=== PATIENT | male | born 1990 | race Caucasian/White ===

== ENCOUNTER 2019-08-24 14:13 | Emergency (ER) | payer OTHER, SELFPAY ==
--- NOTE | ~2019-08-24 | XR_ITS ---
EXAMINATION: XR ribs LT 2V w CXR 2V DATE: 08/24/2019 14:49 INDICATION: Mid to lateral left chest pain with coughing TECHNIQUE: PA and lateral of the chest and 3 views of the left ribs were obtained. COMPARISON: None FINDINGS: No rib fractures identified. Bandlike discoid atelectasis at the right lung base. No other airspace o pacities, pulmonary edema, pleural effusion or pneumothorax. IMPRESSION: 1. No rib fracture. 2. Discoid atelectasis at the right lung base. No other acute cardiopulmonary disease. Reviewed, dictated and finalized at location A. IMPRESSION: 1. No rib fracture. 2. Discoid atelectasis at the right lung base. No other acute cardiopulmonary d isease.
[2019-08-24 14:21] VITALS: BP 150/93; PULSE 107; RESP 18; TEMP 36.6; O2SAT 96
[2019-08-24] MEDS: SODIUM CHLORIDE 0.9% IV 1,000 ML 999 ML IV CONT (15:06)
--- NOTE | 2019-08-24 15:08 | ED.GENADULT ---
HPI - General Adult General Chief complaint: Unspecified <Yvan Potter PA-C - Last Filed: 08/24/19 16:00> Stated complaint: LEFT RIB PAIN <Yvan Potter PA-C - Last Filed: 08/24/19 16:00> Time Seen by Provider: 08/24/19 14:16 <Yvan Potter PA-C - Last Filed: 08/24/19 16:00> Source: patient <TONYA Haynes Last Filed: 08/24/19 16:00> Mode of arrival: ambulatory <Yvan Potter PA-C - Last Filed: 08/24/19 16:00> Limitations: no limitations <Yvan Potter PA-C - Last Filed: 08/24/19 16:00> History of Present Illness HPI narrative: Patient is a 29-year-old male who presents to emergency department for evaluation of left rib pain noting sharp stabbing pain worse with activity and movement denying any dyspnea notes that the pain is been present for over 2 weeks patient notes that he was recently let go from the hospital after being diagnosed with pneumonia discharged 9 days ago patient on arrival to emergency department is in the room in no distress has been taking ibuprofen and Tylenol with minimal improvement denies any URI symptoms or other complaints and on arrival is in the room in no distress <Yvan Potter PA-C - Last Filed: 08/24/19 16:00> Related Data Home medications: Home Medications Medication Instructions Recorded Confirmed No Home Medications 08/24/19 08/24/19 <TONYA Haynes Last Filed: 08/24/19 16:00> Allergies/adverse reactions: Allergies Allergy/AdvReac Type Severity Reaction Status Date / Time morphine Allergy Mild SWELLING Verified 08/24/19 14:26 <Yvan Potter PA-C - Last Filed: 08/24/19 16:00> Review of Systems Review of Systems: All systems reviewed & are unremarkable except as noted in HPI and below <Yvan Potter PA-C - Last Filed: 08/24/19 16:00> [facility] Social History Social History: Social History Gender identity (if verbalized by the patient): Male <TONYA Haynes Last Filed: 08/24/19 16:00> Exam Narrative: Exam Narrative: GENERAL: Well-appearing, well-nourished, and in no acute distress. HEAD: Normocephalic, atraumatic. EYES: PERRLA and EOMI. ENT: Nares clear, no rhinorrhea or epistaxis. Mucous membranes moist. Oropharynx without tonsillar hypertrophy exudate or other lesions. NECK: Supple. No adenopathy or masses. CHEST: Clear to auscultation. No respiratory distress. No wheezes rales or rhonchi HEART: Regular rate and rhythm. No murmur heard. Normal peripheral pulses.. Tenderness of the left lateral ribs no deformity noted ABDOMEN: Soft, nontender, nondistended, EXTREMITIES: Normal range of motion. No edema. SKIN: Warm, dry, no rash. NEURO: No focal deficits. Alert and oriented x3. PSYCH: Normal mood and affect. <TONYA Haynes Last Filed: 08/24/19 16:00> Course Course Emergency Course: Patient in the room in no distress aware of case findings treatment plan and diagnosis agreeing to follow-up as directed <TONYA Haynes Last Filed: 08/24/19 16:00> Vital Signs Vital signs: Vital Signs Temperature 97.8 F 08/24/19 14:21 Pulse Rate 107 H 08/24/19 14:21 Respiratory Rate 18 08/24/19 14:21 Blood Pressure 150/93 H 08/24/19 14:21 Pulse Oximetry 96 08/24/19 14:21 Temperature 97.8 F 08/24/19 14:21 Pulse Rate 90 08/24/19 16:15 Respiratory Rate 16 08/24/19 16:15 Blood Pressure 148/96 H 08/24/19 16:15 Pulse Oximetry 97 08/24/19 16:15 <TONYA Haynes Last Filed: 08/24/19 16:00> Vital Signs Temperature 97.8 F 08/24/19 14:21 Pulse Rate 107 H 08/24/19 14:21 Respiratory Rate 18 08/24/19 14:21 Blood Pressure 150/93 H 08/24/19 14:21 Pulse Oximetry 96 08/24/19 14:21 Temperature 97.8 F 08/24/19 14:21 Pulse Rate 90 08/24/19 16:15 Respiratory Rate 16 08/24/19 16:15 Blood Pressure 148/96 H 08/23
[2019-08-24 15:12] LABS: Basophils Absolute Auto 0.1 K/mm3 (0.0-0.1); Basophils Percent Auto 0.8 % (0.2-1.2); Eosinophils Absolute Auto 0.2 K/mm3 (0-0.3); Eosinophils Percent Auto 3.1 % (0-4.4); Hematocrit 43.1 % (42.0-52.0); Hemoglobin 14.4 g/dL (14.0-18.0); Immature Granulocyte Absolute 0.06 K/mm3 (0.00-0.031); Immature Granulocyte Percent A 0.9 % (0-0.5); Lymphocytes Absolute Auto 2.25 K/mm3 (0.9-3.2); Lymphocytes Percent Auto 34.9 % (18.3-44.2); Mean Corpuscular HGB Conc 33.4 g/dl (32-36); Mean Corpuscular Hemoglobin 29.1 pg (26-34); Mean Corpuscular Volume 87.2 fl (80-100); Mean Platelet Volume 9.2 fl (7.4-10.4); Monocytes Absolute Auto 0.6 K/mm3 (0.1-0.6); Monocytes Percent Auto 9.6 % (2.6-8.5); Neutrophils Absolute Auto 3.3 K/mm3 (1.3-6.7); Neutrophils Percent Auto 50.7 % (45.5-73.1); Platelet Count Result 264 k/mm3 (150-375); Red Blood Count 4.94 M/mm3 (4.6-6.20); Red Cell Distribution Width 13.7 % (11.5-14.5); White Blood Count 6.4 K/mm3 (4.5-10.0)
[2019-08-24 15:21] LABS: INR 0.9; Prothrombin Time 11.4 Seconds (11.1-14.7)
[2019-08-24 15:22] LABS: Partial Thromboplastin Time 29.4 SECONDS (22.3-36.8)
[2019-08-24 15:36] LABS: D Dimer 0.27 ug/mL (<0.48)
[2019-08-24 15:44] LABS: Alanine Aminotransferase 199 U/L (4-50); Albumin Level 4.4 g/dL (3.5-5.1); Alkaline Phosphatase 100 U/L (38-126); Aspartate Amino Transferase 83 U/L (17-59); Bilirubin,Total 0.2 mg/dL (0.2-1.3); Blood Urea Nitrogen 12 mg/dL (9-20); Calcium 9.2 mg/dL (8.4-10.2); Carbon Dioxide 24 mmol/L (22-30); Chloride 105 mmol/L (98-107); Estimated CRCL calculation 175 ml/min; Estimated Glomerular Filt Rate > 60; Glucose 105 mg/dL (75-110); Lipase 218 U/L (23-300); Potassium 4.4 mmol/L (3.4-5.0); Sodium 137 mmol/L (137-145)
[2019-08-24 16:08] VITALS: BP 150/97; PULSE 87; RESP 14; O2SAT 98
[2019-08-24 16:15] VITALS: BP 148/96; PULSE 90; RESP 16; O2SAT 97
== END 2019-08-24 16:15 | disposition home or self-care (01) ==
PROVIDERS: Emergency Medicine Emergency Medical Services; Emergency Provider Emergency Medicine
DX: R07.81 Pleurodynia (principal); R91.8 Other nonspecific abnormal finding of lung field
CPT/HCPCS: 36415; 71046; 71100; 80053; 83690; 85025; 85380; 85610; 85730; 96365; 99284; J0131; J7030

== ENCOUNTER 2023-02-12 10:59 | Emergency (ER) | payer OTHER, MEDICAID, SELFPAY ==
--- NOTE | ~2023-02-12 | XR_ITS ---
EXAMINATION: XR chest 2V DATE: 02/12/2023 11:55 INDICATION: Cough TECHNIQUE: Frontal and lateral views of the chest are obtained COMPARISON: 08/24/2019 FINDINGS: The lungs are free of acute opacities. No pleural effusion or pneumothorax. The cardiomedia stinal silhouette is normal. The visualized bones and soft tissues are unremarkable. IMPRESSION: 1. No acute cardiopulmonary abnormality. Reviewed, dictated and finalized at location F. TH INFORMATION TECHNOLOGIST
[2023-02-12 11:28] VITALS: BP 156/95; PULSE 75; RESP 20; TEMP 36.4; O2SAT 100
--- NOTE | 2023-02-12 12:27 | ECG_ITS ---
Measurements Intervals [place] Rate: 65 P: 61 DC: 169 QRS: 55 QRSD: 110 T: 41 QT: 350 QTc: 364 Interpretive Statements SINUS RHYTHM INCOMPLETE RIGHT BUNDLE BRANCH BLOCK BASELINE ARTIFACT- I, III, AVL BORDERLINE ECG NO PREVIOUS ECG AVAILABLE FOR COMPARISON Electronically Signed On 02-12-2023 16:40:56 BRANCH ASSISTANT by Kendell Travis D.O.
--- NOTE | 2023-02-12 12:40 | ED.URI ---
HPI - URI/Sore Throat General Chief Complaint: Upper Respiratory Infection Stated Complaint: Cough x1 month, Time Seen by Provider: 02/12/23 12:08 Source: patient and RN notes reviewed Mode of arrival: ambulatory Limitations: no limitations History of Present Illness HPI Narrative: This is a 33 year old male who presents for evaluation of cough. He reports he had cough for 1 month. He reports cough is productive with white and yellow sputum. He was evaluated last week for his symptoms. He was started on antibiotics and steroids. He reports he has developed nausea and vomiting worsen with coughing. He also reports diarrhea. He reports right side headache as well that he rates pain 7/10. He is unsure of fever. Related Data Allergies Allergy/AdvReac Type Severity Reaction Status Date / Time morphine Allergy Mild SWELLING Verified 02/12/23 11:32 Review of Systems Constitutional: Constitutional: Denies weakness ENT: Reports nasal congestion Cardiovascular: Cardiovascular: Denies syncope, Denies rapid heart rate, Denies irregular heart rhythm, Denies leg edema and Reports dyspnea Respiratory: Respiratory: Reports chest congestion, Reports cough, Denies hemoptysis, Reports excessive phlegm production and Reports dyspnea Gastrointestinal: Gastrointestinal: Denies abdominal pain, Denies hematochezia, Reports diarrhea, Reports nausea and Reports vomiting Genitourinary: Genitourinary: Denies hematuria, Denies dysuria, Denies penile discharge and Denies testicular pain Musculoskeletal: Musculoskeletal: Denies joint swelling, Denies loss of height and Denies muscle weakness Neurologic: Denies syncope, Reports headache(s), Denies focal weakness and Denies weakness PMFSH Past Medical History Medical History (Updated 02/12/23 @ 14:06 by Venus May MD) Asthma Social History Social History (Updated 02/12/23 @ 12:41 by Venus May MD) Smoking status: Never smoker Gender identity (if verbalized by the patient): Male Exam Narrative: GENERAL: , well-nourished, and in no acute distress. HEAD: Normocephalic, atraumatic EYES: PERRLA and EOMI, conjunctiva clear without discharge EARS: TM's clear bilaterally without erythema or dullness NOSE: Nares clear, no rhinorrhea or epistaxis THROAT:Mucous membranes moist, Oropharynx normal without erythema, exudate, peritonsillar swelling or fluctuance NECK: Supple, without lymphadenopathy or mass RESPIRATORY: No respiratory distress, Airway patent, Respirations non-labored, Clear to auscultation without rales, rhonchi or wheeze HEART: Regular rate and rhythm. No murmur heard. Normal peripheral pulses. ABDOMEN: Soft, nontender, nondistended, normal active bowel sounds. No masses. No rebound or guarding, No organomegaly. EXTREMITIES: No edema, normal strength with full range of motion. SKIN: Warm, dry, normal color without rash NEURO: Alert and oriented x3. CN 2-12 grossly intact. No focal deficits. PSYCH: Normal mood and affect. Course Reevaluation(s) Reevaluation #1: PAtient states he feels better. Headache is resolving. I reviewed labs with patient. He was given MDI instructions. He request antiemetic with discharge papers. HE denies any other questions or concerns. Date: 02/12/23 Time: 14:02 Vital Signs Vital signs: Vital Signs Temperature 97.5 F L 02/12/23 11:28 Pulse Rate 75 02/12/23 11:28 Respiratory Rate 20 02/12/23 11:28 Blood Pressure 156/95 H 02/12/23 11:28 Pulse Oximetry 100 02/12/23 11:28 Oxygen Delivery Room Air 02/12/23 11:28 Temperature 97.5 F L 02/12/23 11:28 Pulse Rate 83 02/12/23 14:20 Respiratory Rate 18 02/12/23 14:20 Blood Pressure 148/85 H 02/12/23 14:20 Pulse Oximetry 99 02/12/23 14:20 Oxygen Delivery Room Air 02/12/23 11:35 MDM - URI/Sore Throat MDM Narrative Medical decision making narrative: Patient presents with URI symptoms. labs ordered, EKG ordered, chest xray ordered.
[2023-02-12] MEDS: SODIUM CHLORIDE 0.9% IV 1,000 ML 999 ML IV CONT (12:52)
[2023-02-12] MEDS: KETOROLAC 30 MG/ML VIAL (*BKC) IV PUSH (12:53)
[2023-02-12] MEDS: METOCLOPRAMIDE HCL INJ 10 MG/2 ML VIAL IV PUSH (12:53)
[2023-02-12] MEDS: diphenhydrAMINE HCl INJ 50 MG/ML VIAL 25 MG IV PUSH (12:53)
[2023-02-12 13:04] LABS: Basophils Absolute Auto 0.1 K/mm3 (0.0-0.1); Basophils Percent Auto 0.9 % (0.2-1.2); Eosinophils Absolute Auto 0.1 K/mm3 (0-0.3); Eosinophils Percent Auto 0.9 % (0-4.4); Immature Granulocyte Absolute 0.36 K/mm3 (0.00-0.031); Immature Granulocyte Percent A 2.9 % (0-0.5); Lymphocytes Absolute Auto 2.47 K/mm3 (0.9-3.2); Lymphocytes Percent Auto 19.9 % (18.3-44.2); Mean Corpuscular Hemoglobin 29.5 pg (26-34); Mean Corpuscular Volume 86.7 fl (80-100); Mean Platelet Volume 8.8 fl (7.4-10.4); Monocytes Absolute Auto 0.9 K/mm3 (0.1-0.6); Monocytes Percent Auto 7.5 % (2.6-8.5); Neutrophils Absolute Auto 8.4 K/mm3 (1.3-6.7); Neutrophils Percent Auto 67.9 % (45.5-73.1); Platelet Count Result 315 k/mm3 (150-375); Red Blood Count 5.42 M/mm3 (4.6-6.20); Red Cell Distribution Width 13.9 % (11.5-14.5); White Blood Count 12.4 K/mm3 (4.5-10.0)
[2023-02-12 13:06] LABS: Alanine Aminotransferase 110 U/L (6-50); Albumin Level 4.6 g/dL (3.5-5.1); Alkaline Phosphatase 61 U/L (38-126); Anion Gap 9 mmol/L (8-16); Aspartate Amino Transferase 40 U/L (17-59); Bilirubin,Total 0.4 mg/dL (0.2-1.3); Blood Urea Nitrogen 11 mg/dL (9-20); Carbon Dioxide 27 mmol/L (22-30); Chloride 102 mmol/L (98-107); Estimated CRCL calculation 194 ml/min; Estimated Glomerular Filt Rate > 60; Glucose 102 mg/dL (65-110); Potassium 3.7 mmol/L (3.4-5.0); Sodium 138 mmol/L (137-145)
[2023-02-12 13:08] LABS: Prothrombin Time 13.4 Seconds (11.1-14.7)
[2023-02-12 13:09] LABS: Partial Thromboplastin Time 24.2 SECONDS (22.3-36.8)
[2023-02-12 13:12] LABS: D Dimer 0.42 ug/mL (<0.48)
[2023-02-12 13:24] LABS: Troponin I < 0.012 ng/mL (0.000-0.034)
[2023-02-12 13:32] LABS: Influenza A QL RT-PCR Negative (Negative); Influenza B QL RT-PCR Negative (Negative); RSV RNA, RT-PCR Negative (Negative); SARS-CoV-2 RNA PCR Negative (Negative)
[2023-02-12 14:20] VITALS: BP 148/85; PULSE 83; RESP 18; O2SAT 99
== END 2023-02-12 14:23 | disposition home or self-care (01) ==
PROVIDERS: Emergency Provider General Practice; PCP Internal Medicine
DX: G43.909 Migraine, unspecified, not intractable, without status migrainosus (principal); J06.9 Acute upper respiratory infection, unspecified; R11.2 Nausea with vomiting, unspecified; R19.7 Diarrhea, unspecified; Z20.822 Contact with and (suspected) exposure to COVID-19
CPT/HCPCS: 36415; 71046; 80053; 84484; 85025; 85380; 85610; 85730; 87637; 93005; 94664; 96361; 96374; 96375; 99284; J1200; J1885; J2765; J7030